=== PATIENT | male | born 1970 | race Caucasian/White ===

== ENCOUNTER 2018-01-29 09:55 | Emergency (ER) | payer OTHER ==
[2018-01-29] MEDS ORDERED: Lidocaine 1% (PF) 30 ML VIAL ONE (11:07)
[2018-01-29] MEDS ORDERED: Fluorescein Opthalmic Strip ONE (11:11)
[2018-01-29] MEDS ORDERED: Proparacaine 0.5% Opth 15 ML BOT ONE (11:11)
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
[2018-01-29] MEDS ORDERED: HYDROcodone/Acetaminophen 5/325 mg Tablet ONE (11:44)
[2018-01-29] MEDS ORDERED: Adacel (T-DAP) 0.5 ML VIAL ONE (11:44)
== END 2018-01-29 12:43 | disposition home or self-care (01) ==
LOC: ERS 09:55
DX: S02.82XA Fracture of other specified skull and facial bones, left side, initial encounter for closed fracture (principal); S01.112A Laceration without foreign body of left eyelid and periocular area, initial encounter; I10 Essential (primary) hypertension; Z87.891 Personal history of nicotine dependence; Z79.899 Other long term (current) drug therapy; Y04.0XXA Assault by unarmed brawl or fight, initial encounter
CPT/HCPCS: 12014; 70450; 70486; 72125; 90471; 90715; J2001